=== PATIENT | female | born 1945 | race Caucasian/White ===

== ENCOUNTER → 2017-09-26 | Outpatient (CLI) | payer OTHER ==
[~2017-09-26] MED LIST: AMLO10TA2 PO; ASPI-1197 PO; CALC1TAB2 PO; LISI40TA4 PO; METO-408 PO; OMEP20CA10 PO; SIMV40TA59 PO; VIT D3 PO
== END | disposition home or self-care (01) ==
LOC: RAH 09:27
PROVIDERS: ATTEND Internal Medicine
DX: Z12.31 Encounter for screening mammogram for malignant neoplasm of breast (principal)
CPT/HCPCS: 77067

== ENCOUNTER → 2019-04-07 | Outpatient (CLI) | payer OTHER ==
[~2019-04-07] MED LIST changes: -AMLO10TA2 PO; +AMLO10TA7 PO; +OMEP-50 PO; -OMEP20CA10 PO
== END | disposition home or self-care (01) ==
LOC: RAH 14:29
PROVIDERS: ATTEND Internal Medicine
DX: I83.891 Varicose veins of right lower extremity with other complications (principal)
CPT/HCPCS: 93971

== ENCOUNTER 2020-02-25 07:33 | Day surgery (SDC) | payer OTHER ==
[~2020-02-25 07:33] MED LIST changes: +AMLO-258 PO; -AMLO10TA7 PO; -OMEP-50 PO; +OMEP20CA12 PO
[2020-02-25 08:42] LABS: INR 0.95 (0.85-1.15); PARTIAL THROMBOPLASTIN TIME 27.1 SEC (26.3-35.5); PROTHROMBIN TIME 10.3 SEC (9.6-11.6)
--- NOTE | 2020-02-25 09:40 | NUR ---
US GUIDED FNA RIGHT THYROID MASS PROCEDURE PERFORMED BY DR. AMES. PUNCTURE SITE RIGHT SIDE OF NECK. PATIENT TOLERATED PROCEDURE WELL. SPECIMEN X 3 COLLECTED BY LAB PERSONNEL INCLUDING DR. WHITTAKER, PATHOLOGIST. END OF PROCEDURE AT 0955. NEEDLE REMOVED AND DRESSING APPLIED. NO BLEEDING NOTED. PT NOTED TO BE DIAPHORETIC, C/O FEELING SICK TO HER STOMACH AND DIZZY AND LIGHTHEADED. BP NOTED TO BE 78/50. PT DENIES CHEST PAIN OR CHEST PRESSURE. PT RECOVERED WHILE LAYING IN BED FOR 30 MINTUES. PT STATED SHE FELT BETTER. AT 1005 ATTEMPTED TO SIT PATIENT ON THE BED BECAUSE PATIENT STATED, "I FEEL LIKE I'M NEEDING TO USE THE RESTROOM AND HAVE A BM." UPON SITTING ON THE SIDE OF THE BED PT NOTED TO BECOME DIAPHORETIC AND DIZZY." BP NOTED TO DOP TO 82/50. PT STATES," THIS HAPPENS AT HOME, I GET LIGHTHEADED." INFORMED PATIENT BECAUSE SHE WAS SYMPTOMATIC DIZZY, LIGHTHEADED, AND DIAPHORETIC SHE NEEDED TO STAY IN BED AND RECOVER IN THE BED. PT NOTED TO HAVE A LARGE LIQUIDY BM, PERICARE GIVEN AND PLACED IN AN ADULT INCONTINENT DIAPER BECAUSE HER CLOTHING WAS SOILED WITH URINE AND BM. BP STABLE WHILE LAYING IN BED. 111/62, HR 83/MIN. AT 1125 PATIENT STATED, SHE FELT BETTER. PATIENT SAT ON THE SIDE OF THE BED. BP 77/50, HR 92/MIN, RESPIRATIONS 20/MIN, PATIENT STATES, "I FEEL DIZZY, NOTED PATIENT TO BECOME DIAPHORETIC." INFORMED PATIENT THAT UNFORTUNATELY HER BP IS LOW. AND ASKED IF I COULD CALL DR. OLIVER REGARDING WHAT SHE WOULD LIKE ME TO DO. 1130 DR. OLIVER CALLED INFORMED OF PATIENT'S STATUS, ORDERED TO SEND PATIENT TO THE ED FOR EVALUATION. INFORMED PATIENT OF DR. OLIVER'S ORDERS. ATTEMPTED TO CALL SPOUSE BUT SPOUSE DOESN'T HAVE A CELL PHONE. CALLED AND INFORMED HER GRANDSON ARIELLA, REGARDING DR. OLIVER'S ORDERS. BEDSIDE REPORT GIVEN TO SHARON LIZ ED NURSE. PT AAO X 3. NO C/O PAIN.
== END 2020-02-25 12:00 ==
LOC: RAH 07:33 → EDSTATUS 08:00 → RAH 12:00
PROVIDERS: ATTEND Internal Medicine
DX: E07.89 Other specified disorders of thyroid (principal); Z79.01 Long term (current) use of anticoagulants
CPT/HCPCS: 10005; 36415; 76942; 85610; 85730; 88172; 88173; 88305

== ENCOUNTER 2020-02-25 12:02 | Emergency (ER) | payer OTHER ==
[2020-02-25] MEDS ORDERED: SODIUM CHLORIDE 0.9% 1000ML 1,000 ML IV ONE (12:10)
[2020-02-25 12:37] LABS: BASOPHILS % (AUTO) 0.4 % (0.0-5.0); EOSINOPHILS % (AUTO) 0.2 % (0.0-8.0); HEMATOCRIT 46.7 % (36-48); LYMPHOCYTES % (AUTO) 10.8 % (21.0-51.0); MEAN CORPUSCULAR HEMOGLOBIN 28.7 pg (27.0-33.0); MEAN CORPUSCULAR HGB CONC 32.3 g/dL (32.0-36.0); MEAN CORPUSCULAR VOLUME 88.6 fL (79-99); MONOCYTES % (AUTO) 5.4 % (3.0-13.0); NEUTROPHILS % (AUTO) 82.6 % (40.0-77.0); PLATELET COUNT (AUTO) 374 K/uL (130-400); RED BLOOD CELL COUNT(AUTO) 5.27 MIL/uL (4.00-5.50); WHITE BLOOD COUNT (AUTO) 18.2 K/uL (4.8-10.8)
[2020-02-25 12:47] LABS: CREATININE 1.1 mg/dL (0.5-1.5); POTASSIUM 4.5 mmol/L (3.5-5.1)
[2020-02-25 12:51] LABS: ALBUMIN 3.3 g/dL (3.5-5.0); BILIRUBIN,TOTAL 0.8 mg/dL (0.2-1.0); TOTAL PROTEIN, SERUM 7.7 g/dL (6.0-8.3)
[2020-02-25] MEDS ORDERED: CEFTRIAXONE SODIUM 2 GM VIAL ONE (13:13)
[2020-02-25 13:52] LABS: APPEARANCE,URINE Clear (CLEAR); BILIRUBIN,URINE Negative (NEGATIVE); COLOR,URINE Yellow (YELLOW); GLUCOSE, URINE (UA) Negative (NEGATIVE); KETONES,URINE Negative (NEGATIVE); LEUKOCYTE ESTERASE ,URINE Negative (NEGATIVE); NITRATE,URINE Negative (NEGATIVE); OCCULT BLOOD,URINE Negative (NEGATIVE); PROTEIN,URINE Negative (NEGATIVE); UROBILINOGEN,URINE 0.2 mg/dL (0.2-1.0)
== END 2020-02-25 15:18 | disposition home or self-care (01) ==
LOC: EDH 12:02
DX: I95.9 Hypotension, unspecified (principal); Z72.0 Tobacco use; Z88.8 Allergy status to other drugs, medicaments and biological substances; I11.0 Hypertensive heart disease with heart failure; I50.9 Heart failure, unspecified
CPT/HCPCS: 36415; 71045; 80053; 81003; 82550; 83605; 84484; 85025; 87040 ×2; 93005; 96361; 96374; 99284; J0696; J7030

== ENCOUNTER 2020-03-15 07:42 | Emergency (ER) | payer OTHER | END 2020-03-15 10:54 | disposition home or self-care (01) | LOC: EDH 07:42 | DX: M62.81 Muscle weakness (generalized) (principal); I11.0 Hypertensive heart disease with heart failure; I50.42 Chronic combined systolic (congestive) and diastolic (congestive) heart failure; C73 Malignant neoplasm of thyroid gland; R22.32 Localized swelling, mass and lump, left upper limb; R19.7 Diarrhea, unspecified; G62.9 Polyneuropathy, unspecified; Z88.1 Allergy status to other antibiotic agents; Z88.8 Allergy status to other drugs, medicaments and biological substances ==

== ENCOUNTER 2020-03-22 | Inpatient (IN) | payer OTHER | END 2020-04-01 21:51 | disposition EXP | DRG 207 | PROVIDERS: ADMIT Internal Medicine | PROC: 5A1955Z Respiratory Ventilation, Greater than 96 Consecutive Hours (ICD-10-PCS; principal; 2020-03-24) | PROC: 5A09357 Assistance with Respiratory Ventilation, Less than 24 Consecutive Hours, Continuous Positive Airway Pressure (ICD-10-PCS; 2020-03-24) | PROC: 0BH17EZ Insertion of Endotracheal Airway into Trachea, Via Natural or Artificial Opening (ICD-10-PCS; 2020-03-24) ==